=== PATIENT | female | born 1980 | race Caucasian/White ===

== ENCOUNTER 2019-01-28 10:06 | Emergency (ER) | payer OTHER ==
[2019-01-28 10:26] VITALS: BP 121/76; PULSE 103; TEMP 98.3
[2019-01-28] MEDS ORDERED: diphenhydrAMINE HCL 25 MG CAPSULE (FP) PO ONE ×2 (11:28→11:46)
--- NOTE | 2019-01-28 11:40 | PDOC ---
History of Present Illness - General Chief Complaint: Rash Stated Complaint: BODY ACHES Time Seen by Provider: 01/28/19 11:20 History Source: Patient Exam Limitations: No Limitations - History of Present Illness Initial Comments: 01/28/19 11:28 38 year old female with surgical or medical history presents with rash x 2 days after spending the night in [place]. Reports no respiratory involvement. Used no medication so far. 01/28/19 11:48 Timing/Duration: reports: yesterday Severity: Yes: mild Location: reports: extremities, face, torso Respiratory Risk Factors: reports: insect bite Modifying Factors: improves with: scratching Associated Symptoms: denies: fever, sore throat Past History - Travel Traveled outside of the country in the last 30 days: No Close contact w/someone who was outside of country & ill: No - Past Medical History Allergies/Adverse Reactions: Allergies Allergy/AdvReac Type Severity Reaction Status Date / Time Penicillins Allergy Intermediate Verified 01/28/19 10:23 Home Medications: Ambulatory Orders Diphenhydramine [Benadryl -] 50 mg PO HS #7 capsule 01/28/19 Hydrocortisone 2.5% Topical Cr [Anusol-Hc -] 1 applic RC BID #1 tube 01/28/19 Permethrin [Elimite] 60 gm TP ONCE #1 cream..g. 01/28/19 Anemia: Yes Asthma: No Cancer: No Cardiac Disorders: No COPD: No Diabetes: No GI Disorders: No HTN: No Seizures: No Thyroid Disease: No - Surgical History Appendectomy: Yes - Immunization History Immunization Up to Date: Yes - Psycho Social/Smoking Cessation Hx Smoking History: Never smoked Have you smoked in the past 12 months: Yes Number of Cigarettes Smoked Daily: 0 If you are a former smoker, when did you quit?: 05/2013 Information on smoking cessation initiated: No 'Breaking Loose' booklet given: 12/19/12 Hx Alcohol Use: No Drug/Substance Use Hx: No Substance Use Type: None Hx Substance Use Treatment: No Review of Systems - Review of Systems Able to Perform ROS?: Yes Is the patient limited Estonian proficient: No Constitutional: No: Chills, Fever, Night Sweats HEENTM: No: Ear Pain, Ear Discharge, Nose Congestion, Hearing Loss, Throat Pain , Throat Swelling Respiratory: No: Cough, Orthopnea, Shortness of Breath Cardiac (ROS): No: Chest Pain, Lightheadedness, Palpitations ABD/GI: No: Constipated, Difficulty Swallowing, Nausea, Poor Fluid Intake, Vomiting, Indigestion : No: Dysuria, Incontinence Integumentary: Yes: Rash. No: Lesions, Lumps Neurological: No: Numbness, Paresthesia, Tingling, Weakness Hematologic/Lymphatic: No: Anemia *Physical Exam - Vital Signs Last Vital Signs Temp Pulse Resp BP Pulse Ox 98.3 F 103 H 17 121/76 100 01/28/19 10:18 01/28/19 10:18 01/28/19 10:18 01/28/19 10:18 01/28/19 10:18 - Physical Exam General Appearance: Yes: Nourished, Appropriately Dressed HEENT: positive: TMs Normal, Pharynx Normal Neck: positive: Supple. negative: Lymphadenopathy (R), Lymphadenopathy (L) Respiratory/Chest: positive: Lungs Clear Cardiovascular: positive: Regular Rhythm, Regular Rate Gastrointestinal/Abdominal: negative: Increased Bowel Sounds, Rebound Extremity: positive: Normal Inspection. negative: Coldness Neurologic: positive: Fully Oriented, Alert Medical Decision Making - Medical Decision Making 01/89 year old female with surgical or medical history presents with rash x 2 days after spending the night in [place]. Reports no respiratory involvement. Rash -benadryl given d/c home wt instructions to wash clothing in hot clothing rx: hydrocortisone benadryl permethrin Discharge - Discharge Information Problems reviewed: Yes Clinical Impression/Diagnosis: Rash and nonspecific skin eruption Condition: Good Disposition: HOME - Admission No - Additional Discharge Information Prescriptions: Diphenhydramine [Benadryl -] 50 mg PO HS #7 capsule Hydrocortisone 2.5% Topical Cr [Anusol-Hc -] 1 applic RC BID #1 tube Permethrin [Elimite] 60 gm TP ONCE #1 cream..g. - Follow up/Referral Referrals: Yaya Sparrow MD [Primary Care Provider] - Call tomorrow - Patient Discharge Instructions Patient Printed Discharge Instructions: DI for Bed Bug Bites, DI for Rash Additional Instructions: - Wash all linens and clothes in hot water -Apply cream from head to toe leave on for 8 to 12 hours then rinse -Use hydrocortisone for itching and benadryl at nights - Post Discharge Activity Work/Back to School Note: Back to Work
== END 2019-01-28 11:59 | disposition home or self-care (01) ==
LOC: JERFT 10:06
DX: R21 Rash and other nonspecific skin eruption (principal); Z88.0 Allergy status to penicillin
CPT/HCPCS: 99281-25

== ENCOUNTER 2021-05-14 04:25 | Day surgery (SDC) | payer OTHER ==
[2021-05-14 08:48] VITALS: BMI 20.6
[2021-05-14] MEDS ORDERED: BUPIVACAINE HCL/PF 0.5% (5MG/ML) 10 ML VIAL ONE (09:50)
[2021-05-14] MEDS ORDERED: PROPOFOL 20 ML ONE ×2 (10:20→10:59)
[2021-05-14] MEDS ORDERED: MIDAZOLAM HCL 2 MG/2 ML SINGLE DOSE VIAL ONE (10:21)
[2021-05-14] MEDS ORDERED: ROCURONIUM BROMIDE 100 MG/10 ML VIAL ONE (10:22)
[2021-05-14] MEDS ORDERED: CLINDAMYCIN 900 MG PREMIX BAG IVPB ONE (10:45)
[2021-05-14] MEDS ORDERED: BUPIVACAINE HCL/PF 0.5% (5MG/ML) 10 ML VIAL IJ ONE ×2 (10:57)
[2021-05-14] MEDS ORDERED: HYDROmorphone HCl 2 MG/ML VIAL ONE (11:09)
[2021-05-14] MEDS ORDERED: NEOSTIGMINE METHYLSULFATE 0.5 MG/ML - 10 ML MDV ONE (11:31)
[2021-05-14] MEDS ORDERED: GLYCOPYRROLATE 0.2 MG/1 ML VIAL ONE (11:34)
[2021-05-14] MEDS ORDERED: oxyCODONE HCL 5 MG TABLET PO PRN (11:57)
[2021-05-14] MEDS ORDERED: PROMETHAZINE HCL 25 MG/1 ML VIAL IVPB PRN (11:57)
[2021-05-14] MEDS ORDERED: ACETAMINOPHEN 1000 MG/100 ML BAG IVPB ONE ×3 (14:00→14:12)
[2021-05-14] MEDS ORDERED: ACETAMINOPHEN INJECTION 100 ML IVPB ONE (14:11)
[2021-05-14] MEDS ORDERED: oxyCODONE HCL 5 MG TABLET ONE ×2 (14:46→16:55)
[2021-05-14 14:54] VITALS: TEMP 98.4
[2021-05-14] MEDS ORDERED: oxyCODONE HCL 5 MG TABLET PO ONE (16:45)
[2021-05-14 17:05] VITALS: BP 124/82; PULSE 87
== END 2021-05-14 17:30 | disposition home or self-care (01) ==
LOC: JASU-SURG 04:25
PROVIDERS: ATTEND Surgery
PROC: 0FT44ZZ Resection of Gallbladder, Percutaneous Endoscopic Approach (ICD-10-PCS; principal; 2021-05-14 10:00)
DX: K80.10 Calculus of gallbladder with chronic cholecystitis without obstruction (principal)
CPT/HCPCS: 81025; 88304-TC; 94760

== ENCOUNTER 2023-05-06 11:57 | Emergency (ER) | payer OTHER ==
[2023-05-06 12:06] VITALS: BP 121/82; TEMP 99; BMI 21.3
[2023-05-06 13:19] LABS: BASO % 1.1 % (0-2.0); EOS % 0.6 % (0-4.5); HEMATOCRIT 36.1 % (32.4-45.2); HEMOGLOBIN 12.3 GM/dL (10.7-15.3); LYMPH % 35.2 % (8-40); MCH 28.5 pg (25.7-33.7); MEAN CELL VOLUME 83.8 fl (80-96); MEAN PLT VOLUME 6.9 fl (7.5-11.1); MONO % 9.6 % (3.8-10.2); NEUT % 53.5 % (42.8-82.8); PLATELET COUNT 358 10^3/uL (134-434); RBC 4.31 M/mm3 (3.60-5.2); WHITE BLOOD COUNT 3.8 K/mm3 (4.0-10.0)
[2023-05-06] MEDS ORDERED: ACETAMINOPHEN 325 MG TABLET (FP) ONE (13:21)
[2023-05-06] MEDS: ACETAMINOPHEN 325 MG TABLET (FP) PO ONE (13:23)
[2023-05-06 13:33] LABS: POTASSIUM 4.1 mmol/L (3.5-5.1)
[2023-05-06 13:35] LABS: CALCIUM 9.2 mg/dL (8.5-10.1); INR 1.17 (0.83-1.09); PROTHROMBIN TIME (PATIENT) 13.6 SEC (9.7-13.0)
[2023-05-06 13:36] LABS: ALBUMIN 3.8 g/dl (3.4-5.0); BLOOD UREA NITROGEN 9.5 mg/dL (7-18)
[2023-05-06] MEDS: SODIUM CHLORIDE 0.9% 500 ML INFUS.BAG IV ONE (13:37)
[2023-05-06 13:39] LABS: CREATININE 0.7 mg/dL (0.55-1.3)
[2023-05-06 13:40] LABS: BILIRUBIN,TOTAL 0.3 mg/dL (0.2-1); TOT PROT 7.1 g/dl (6.4-8.2)
[2023-05-06 13:56] LABS: EPI CELLS 2 /uL (0-25.1); HYALINE CASTS 0 /uL (0-3.1); PH,URINE 5.5 (5.0-8.0); URINE APPEARANCE CLEAR; URINE BACTERIA 1 /uL (0-1359); URINE BILIRUBIN NEGATIVE (NEGATIVE); URINE COLOR DK YELLOW; URINE GLUCOSE (UA) NEGATIVE (NEGATIVE); URINE KETONE NEGATIVE (NEGATIVE); URINE LEUK ESTERASE NEGATIVE (NEGATIVE); URINE NITRITE NEGATIVE (NEGATIVE); URINE PROTEIN NEGATIVE (NEGATIVE); URINE RBC 30 /uL (0-23.9); URINE UROBILINOGEN 0.2 mg/dL (0.2-1.0); URINE WBC 5 /uL (0-25.8)
[2023-05-06 15:39] VITALS: PULSE 76; RESP 16
== END 2023-05-06 17:14 | disposition home or self-care (01) ==
LOC: JER 11:57
DX: O20.9 Hemorrhage in early pregnancy, unspecified (principal); Z3A.01 Less than 8 weeks gestation of pregnancy
CPT/HCPCS: 36415; 76817-TC; 80053; 81003; 84702; 85025; 85610; 86850; 86900; 86901; 99284-25

== ENCOUNTER 2024-03-26 13:26 | Inpatient (IN) | payer OTHER ==
[2024-03-26 15:08] VITALS: BMI 24.8
[2024-03-26 16:22] LABS: BASO % 0.4 % (0-2.0); EOS % 0.3 % (0-4.5); HEMATOCRIT 33.1 % (32.4-45.2); HEMOGLOBIN 11.1 GM/dL (10.7-15.3); LYMPH % 23.4 % (8-40); MCH 28.3 pg (25.7-33.7); MCHC 33.7 g/dl (32.0-36.0); MEAN CELL VOLUME 83.9 fl (80-96); MEAN PLT VOLUME 7.2 fl (7.5-11.1); MONO % 8.2 % (3.8-10.2); NEUT % 67.7 % (42.8-82.8); PLATELET COUNT 284 10^3/uL (134-434); RBC 3.94 M/mm3 (3.60-5.2); RDW 14.2 % (11.6-15.6); WHITE BLOOD COUNT 4.2 K/mm3 (4.0-10.0)
[2024-03-26 16:35] LABS: INR 1.04 (0.83-1.09); PROTHROMBIN TIME (PATIENT) 11.7 SEC (9.7-13.0)
[2024-03-26 16:39] LABS: ACTIVATED PTT 27.4 SECONDS (25.2-36.5)
[2024-03-26 16:55] LABS: POTASSIUM 3.8 mmol/L (3.5-5.1)
[2024-03-26 16:56] LABS: CALCIUM 8.8 mg/dL (8.5-10.1)
[2024-03-26 16:57] LABS: BLOOD UREA NITROGEN 8.1 mg/dL (7-18)
[2024-03-26 17:00] LABS: CREATININE 0.4 mg/dL (0.55-1.3)
[2024-03-26 17:22] LABS: SYPHILIS W/ RPR CONF NON-REACTIVE (NONREACTIVE)
[2024-03-26 17:51] LABS: HIV INTERPRETATION NEGATIVE (NEGATIVE)
[2024-03-26] MEDS: DINOPROSTONE 10 MG VAGINAL SUPPOSITORY VG ONE (17:55)
[2024-03-26] MEDS: LACTATED RINGERS SOLUTION 1,000 ML IV SCH (22:00)
[2024-03-27] MEDS ORDERED: BUTORPHANOL TARTRATE 2 MG/ML VIAL ONE (00:50)
[2024-03-27] MEDS ORDERED: PROMETHAZINE HCL 25 MG/1 ML VIAL ONE (00:50)
[2024-03-27] MEDS: BUTORPHANOL TARTRATE 1 MG/ML VIAL IVPUSH PRN (01:00)
[2024-03-27] MEDS: PROMETHAZINE HCL 25 MG/1 ML VIAL IVPB ONE (01:00)
[2024-03-27] MEDS: LACTATED RINGERS SOLUTION 500 ML IV ONE (05:45)
[2024-03-27] MEDS ORDERED: FENTANYL/BUPIVACAINE/NS/PF - PCEA - 50 ML DISP.SYRIN EP ONE (08:37)
[2024-03-27] MEDS ORDERED: NALOXONE HCL 0.4 MG/ML VIAL IVPUSH PRN (08:41)
[2024-03-27] MEDS: FENTANYL/BUPIVACAINE/NS/PF - PCEA - 50 ML DISP.SYRIN EP SCH (09:06)
[2024-03-27] MEDS ORDERED: CLINDAMYCIN 900 MG PREMIX IVPB 900 MG/50 ML BAG IVPB ONE (09:35)
[2024-03-27] MEDS: CLINDAMYCIN 900 MG PREMIX IVPB 900 MG/50 ML BAG IVPB SCH (09:45)
[2024-03-27] MEDS ORDERED: OXYTOCIN 20 UNITS in 0.9% NS 20 UNIT/1,000 ML INFUS.BAG IV ONE (10:06)
[2024-03-27] MEDS ORDERED: METHYLERGONOVINE MALEATE 0.2 MG/1 ML AMP IM PRN (11:35)
[2024-03-27] MEDS ORDERED: BISACODYL 10 MG SUPP.RECT RC PRN (11:35)
[2024-03-27] MEDS ORDERED: oxyCODONE HCL 5 MG TABLET PO PRN (11:35)
[2024-03-27] MEDS: FERROUS SO4 325 MG TABLET (FP) PO SCH (12:00)
[2024-03-27] MEDS ORDERED: OXYTOCIN 30 UNITS in 0.9% NS 30 UNIT/500 ML INFUS.BAG IVPB ONE (15:03)
[2024-03-27] MEDS: OXYTOCIN 20 UNITS in 0.9% NS 20 UNIT/1,000 ML INFUS.BAG IV SCH (15:21)
[2024-03-27 16:14] LABS: CORD BASE EXCESS -4.7 mmol/L (0-2); CORD HCO3 19.7 mmHg (20-29); CORD PCO2 35.1 mmHg (30-78); CORD pH 7.368 (7.14-7.44)
[2024-03-27 16:18] LABS: CORD BASE EXCESS -4.4 mmol/L (0-2); CORD HCO3 19.9 mmHg (20-29); CORD PCO2 34.9 mmHg (30-78); CORD pH 7.374 (7.14-7.44)
[2024-03-27 18:29] VITALS: RESP 18
[2024-03-27] MEDS: IBUPROFEN 600 MG TABLET (FP) PO PRN (19:45)
[2024-03-27] MEDS: ACETAMINOPHEN 325 MG TABLET (FP) PO PRN (21:30)
[2024-03-28 08:07] LABS: BASO % 0.2 % (0-2.0); HEMATOCRIT 28.4 % (32.4-45.2); HEMOGLOBIN 9.5 GM/dL (10.7-15.3); MCH 28.3 pg (25.7-33.7); MCHC 33.3 g/dl (32.0-36.0); MEAN CELL VOLUME 84.9 fl (80-96); MEAN PLT VOLUME 7.3 fl (7.5-11.1); MONO % 6.3 % (3.8-10.2); NEUT % 78.5 % (42.8-82.8); PLATELET COUNT 243 10^3/uL (134-434); RBC 3.35 M/mm3 (3.60-5.2); RDW 13.9 % (11.6-15.6); WHITE BLOOD COUNT 10.1 K/mm3 (4.0-10.0)
[2024-03-28] MEDS: PRENATAL VITAMINS W/ FOLIC ACID TABLET (FP) PO SCH (08:29)
[2024-03-28] MEDS: WITCH HAZEL 50% (TUCKS) 40 PAD/JAR PAD TP PRN (21:19)
[2024-03-28] MEDS: BENZOCAINE 20% 57 GM BOTTLE TP PRN (21:19)
[2024-03-28] MEDS: BENZOCAINE 28 GM HEMORRHOIDAL OINTMENT TP PRN (21:20)
[2024-03-28] MEDS ORDERED: SENNOSIDES/DOCUSATE COMBO (SENNA PLUS) TABLET (UD) PO PRN (22:00)
[2024-03-29 10:02] VITALS: BP 130/79; PULSE 70; TEMP 98
== END 2024-03-29 13:25 | disposition home or self-care (01) | DRG 560 ==
LOC: JLDR 13:26 → J3W 03-27 17:55
PROVIDERS: ADMIT Obstetrics & Gynecology; ATTEND Obstetrics & Gynecology
PROC: 10E0XZZ Delivery of Products of Conception, External Approach (ICD-10-PCS; principal; 2024-03-27)
DX: O41.03X0 Oligohydramnios, third trimester, not applicable or unspecified (principal); O99.820 Streptococcus B carrier state complicating pregnancy; Z3A.39 39 weeks gestation of pregnancy; O26.893 Other specified pregnancy related conditions, third trimester; R51.9 Headache, unspecified; Z37.0 Single live birth
CPT/HCPCS: 36415; 36600; 59409; 80048; 82803; 85025; 85610; 85730; 86780; 86803; 86850; 86900; 86901; 87389